=== PATIENT | female | born 1975 | race Caucasian/White ===

== ENCOUNTER 2019-06-07 22:47 | Emergency (ER) | payer OTHER ==
[2019-06-07 23:17] LABS: Bilirubin Negative (Negative); Blood, Urine Negative (Negative); Glucose, Urine (Dipstick) Negative (Negative); Leukocyte Small (Negative); Nitrite Negative (Negative); Protein, Urine (Dipstick) 100 mg/dL (Neg-Trace); Urobilinogen 0.2 mg/dL (Less than 2)
[2019-06-07 23:21] LABS: Clarity Hazy (Clear)
[2019-06-07 23:33] LABS: RBC/HPF 0-3 HPF (0-3)
[2019-06-07 23:34] LABS: Bacteria/HPF Rare-Few HPF (None Seen); Mucous/LPF 1+ LPF (<2+); Squamous Epithelial 0-3 HPF (0-3)
[2019-06-07] MEDS ORDERED: Ketorolac Tromethamine 30 MG/ML VIAL ONE (23:49)
[2019-06-07] MEDS ORDERED: cefTRIAXone\\ROCEPHIN 2 GM VIAL ONE (23:49)
--- NOTE | 2019-06-07 23:49 | CT ---
CT ABDOMEN AND PELVIS WITHOUT IV CONTRAST: Indications: Right flank pain. FINDINGS: Lung bases clear. Liver, spleen, and pancreas unremarkable. Post cholecystectomy change noted. Adrenal glands normal. Review of kidneys shows mild right hydronephrosis. There is a small calculus measuring in the 2-3 mm range at the right UVJ. The bladder is contracted. There is a large cystic mass which arises from the pelvis that extends superiorly into the lower abdo men in the midline. This mass measures 17 cm craniocaudal dimension x 10 cm AP dimension. Ovarian johan gin would be suspected but this is not confirmed. The uterus appears unremarkable. No free fluid. Bowel loops unremarkable. IMPRESSION: 1. Mild right hydronephrosis. Small obstructing calculus at the right UVJ. The urinary bladder is con tracted. 2. A large cystic mass which arises from the pelvis and extends superiorly into the lower abdomen wit h dimensions given above. Site of origin is not determined, although ovarian origin would be suspecte d. Recommend [employer]END[employer] consultation. POS: [facility]
[2019-06-07] MEDS ORDERED: Sodium Chloride 0.9% 100 ML ONE (23:50)
[2019-06-08 00:04] LABS: #Basophils 0.1 thou/uL (0.0-0.2); #Eosinphils 0.2 thou/uL (0.0-0.7); #Lymphocytes 2.2 thou/uL (1.20-3.40); #Monocytes 0.6 thou/uL (0.11-0.59); %Lymphocytes 23.7 % (21.0-51.0); %Neutrophils 66.2 % (42.0-75.0); Hemoglobin 14.2 g/dL (12.0-16.0); Mean Corpuscular HGB CONC 32.6 g/dL (32.0-36.0); Mean Corpuscular Hemoglobin 29.5 pg (27.0-31.0); Mean Corpuscular Volume 90.4 fL (78.0-98.0); Mean Platelet Volume 9.9 fL (7.4-10.4); Platelet Count 208 thou/uL (130-400); RBC Distribution Width 11.8 % (11.5-14.5); White Blood Cell (WBC) Count 9.1 thou/uL (4.8-10.8)
[2019-06-08 00:14] LABS: ALT (SGPT) 41 U/L (8-55); AST (SGOT) 28 U/L (5-34); Albumin 4.3 g/dL (3.5-5.0); Alkaline Phosphatase 76 U/L (40-110); Anion Gap 16 mmol/L (10-20); BUN (Urea Nitrogen) 14 mg/dL (7.0-18.7); Bilirubin, Total 0.4 mg/dL (0.2-1.2); Calc. Creatinine Clearance 0 mL/min (70-130); Calcium 9.1 mg/dL (7.8-10.44); Carbon Dioxide 24 mmol/L (22-29); Chloride 106 mmol/L (98-107); Estimated GFR-MDRD 68; Globulin 3.3 g/dL (2.4-3.5); Glucose 99 mg/dL (70-105); Lipase 13 U/L (8-78); Potassium 3.7 mmol/L (3.5-5.1); Protein, Total 7.6 g/dL (6.0-8.3); Sodium 142 mmol/L (136-145)
== END 2019-06-08 03:00 | disposition short-term general hospital (02) ==
LOC: BURERS 22:47
DX: N13.2 Hydronephrosis with renal and ureteral calculous obstruction (principal); R19.03 Right lower quadrant abdominal swelling, mass and lump; I10 Essential (primary) hypertension; Z79.899 Other long term (current) drug therapy
CPT/HCPCS: 74176; 80053; 81003; 81015; 83690; 85025; 87086; 93005; 96361; 96374; 96375; J0696; J1885; J3490